=== PATIENT | female | born 1980 | race Caucasian/White ===

== ENCOUNTER 2023-04-20 11:11 | Day surgery (SDC) | payer OTHER, SELFPAY ==
--- NOTE | 2023-04-04 15:06 | PCM.HP.BLA ---
History and Physical Date of Admission: 04/20/23 HPI: The patient is a 42 year old female presenting for pre-operative visit. She is scheduled for laparoscopic bilateral salpingo-oohporectomy and hysteroscopy D&C, for aub and need for surgical m enopause, right ovarian cysts and estrogen receptor + breast ca. Procedure discussed along with risks, benefits and complications. Other alternatives discussed for management. Consent form signed? Yes. ? ? PAST MEDICAL HISTORY PAST MEDICAL HISTORY Diagnosis Date ? anxiety ? ? anxiety/ depression ages [age] ? Asthma ? ? childhood ? Breast cancer (HCC) 10/2020 ? Right Breast ? Breast cancer (HCC) 01/05/2021 ? 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 ? Ulcerative colitis (HCC) ? ? ? PAST SURGICAL HISTORY PAST SURGICAL HISTORY Procedure Laterality Date ? BX OF BREAST; INCISIONAL Right 11/12/2020 ? ? COLONOSCOPY ? ? ? MASTECTOMY HX Bilateral ? ? 01/05/2021 ? PAST SURGICAL HISTORY OF Bilateral 07/26/2021 ? GRAFTING OF AUTOLOGOUS FAT BY LIPO 50 CC OR LESS X 2 ? PAST SURGICAL HISTORY OF ? 10/2021 ? grafting for autologous fat ? TONSILLECTOMY PRIMARY/SECONDARY <AGE 14 ? ? ? Tonsillectomy in patient's 20s ? ? ? CURRENT MEDICATIONS Current Outpatient Medications Medication Sig Dispense Refill ? azelaic acid (FINACEA TOPICAL) Apply to affected area. ? ? ? Multivitamin capsule Take by mouth once daily. ? ? ? L.acid/L.casei/B.bif/B.bridget/FOS (PROBIOTIC BLEND ORAL) Take by mouth. ? ? ? No current facility-administered medications for this visit. ? ? ALLERGIES: Demerol [Meperidine (Pf)], Iodine, and Tape [Adhesive Tape-Silicones] ? PERSONAL HISTORY: SOCIAL HISTORY Social History ? Tobacco Use ? Smoking status: Never ? Smokeless tobacco: Never Vaping Use ? Vaping Use: Never used Substance Use Topics ? Alcohol use: Not Currently ? Drug use: No ? FAMILY HISTORY: FAMILY HISTORY FAMILY HISTORY Problem Relation Age of Onset ? Breast Cancer Mother 39 ? 39 ? Osteoporosis Mother ? ? Psychiatry Mother ? ? Depression ? Thyroid Mother ? ? Skin Cancer Mother ? ? SCC ? Hypertension Father ? ? Psychiatry Father ? ? Depression ? Skin Cancer Maternal Grandfather ? ? 10-20 BCC ? Stroke Paternal Grandfather 60 ? Fragile X Syndrome Son ? ? Ovarian cancer Paternal Aunt 65 ? 62 ? Breast Cancer Other ? ? dx'd 40's great great materal aunt ? ? REVIEW OF SYMPTOMS: GENERAL: denies fevers or chills ENDOCRINOLOGY: has not been on steroids Cardiology : denies palpitations or chest pain Respiratory: denies SOB or cough Hematology: denies history of prolonged bleeding or easy bruising or VTE Allergy: Denies history of personal or family history of allergy to anesthesia ? PHYSICAL EXAMINATION: ? VITALS: Blood pressure 94/66, weight 127 lb (57.6 kg), last menstrual period 12/31/2022. ? GENERAL: The patient is well nourished, well hydrated in no acute distress. , The patient is oriented to time, place, and person. NECK: Supple. No lynphadenopathy, normal thyroid, no thyromegaly. LUNGS: Clear to auscultation bilaterally. no wheezes, rhonchi or rales HEART: Regular rate and rhythm, Normal heart sounds, and No murmurs or gallops ? IMPRESSION: right ovarian cysts, estrogen receptor + breast ca, need for surgical menopause, abnormal uterine bleeding with thickened endometrium on pelvic US ? PLAN: The risks/benefits/alternatives and personal involved for the planned hysteroscopy D&C and laparoscopic BSO were reviewed with the patient. Her questions were answered to her satisfaction and she desires to proceed. Consent was signed. I reviewed with her postop instructions and expectations. ? ? I have reviewed and updated past medical and surgical history, medications and allergies Assessment & Plan Assessment/Plan (1) Chest wall recurrence of right breast cancer: (2) Abnormal uterine bleeding (AUB): (3) Right ovarian cyst:
[2023-04-13 13:16] LABS: Hematocrit 39.8 % (37-47); Hemoglobin 12.9 g/dL (12.0-15.0); Mean Corp Hgb Conc 32.4 g/dL (32-36); Mean Corpuscular Hgb 29.5 pg (27.0-32.0); Mean Corpuscular Volume 90.9 fL (81-99); Mean Platelet Vol. 11.4 fl (6.2-12.0); Platelet Count 238 K/mm3 (150-450); RBC Distribution Width CV 12.7 % (11.6-14.6); RBC Distribution Width SD 41.7 fl (35.1-43.9); Red Blood Count 4.38 M/mm3 (4.2-5.4); White Blood Count 5.5 K/mm3 (4.4-11.0)
--- NOTE | 2023-04-13 13:25 | EKG12_ITS ---
Test Reason : PRE-OP Blood Pressure : / mmHG Vent. Rate : 072 BPM Atrial Rate : 072 BPM P-R Int : 110 ms QRS Dur : 078 ms QT Int : 378 ms P-R-T Axes : 063 069 054 degrees QTc Int : 413 ms Sinus rhythm with sinus arrhythmia with short WI Otherwise normal ECG Confirmed by DARION PADGETT, MG ([id number]), news assignment editor KANDY OROZCO ([id number]) on 04/14/2023 10:07:12 AM Referred By: Debbie White Confirmed By:MG ORLANDO MD
[2023-04-20] VITALS (7 sets, daily range): BP systolic 95–114; BP diastolic 60–69; PULSE 58–86; RESP 16–18; TEMP 36.2–37.2; O2SAT 100; BMI 22.6
[2023-04-20 11:42] LABS: Internal QC Validated? YES +Cl - CLEAR BKGD; Pregnancy, Urine Negative Negative; Record Kit Lot#,Urine Preg 667200
[2023-04-20] MEDS: Acetaminophen 500 MG Tablet 1000 MG PO (11:53)
[2023-04-20] MEDS: Scopolamine 1mg/72hr Patch 1 PATCH TD (11:53)
[2023-04-20] MEDS: Ketorolac 30 MG/ML Syringe IV (11:53)
[2023-04-20] MEDS: Lactated Ringers 1,000 ML 15 ML IV ×2 (11:56→15:24)
--- NOTE | 2023-04-20 12:30 | OV_PTH ---
PATIENT: TRAM OCONNOR LOC: [facility] U#:[id number] AGE/SX: 43/F ROOM: RE04/20/[address]: Dr. Debbie White MD : 1980 BED: DIS: 04/20/2023 SPEC #: [id number] RECD: 04/20/23 15:23 STATUS: GUILLERMINA KVNG #: [id number] OVIDIO: 04/20/23 12:[address]: Debbie White DEPT: SURGICAL PATHOLOGY RECD BY: Glenna Mack ENTERED: 04/21/23 08:01 SP TYPE: OVARY OTHR DR: Dr. Cristobal Ibanez MD Tissues: A - Right ovary B - Left ovary C - Endometrial cavity Procedures: Surgery Specimen Level IV HEADER OPERATION: Laparoscopic bilateral salpingo-oophorectomy, hysteroscopy PRE-OP DIAGNOSIS: Chest wall recurrence of right breast cancer, abnormal uterine bleeding, right ovarian cyst TISSUE SUBMITTED: A - Right fallopian tube and ovary, B - Left fallopian tube and ovary, C - Endometrial curettings MICROSCOPIC DIAGNOSIS A. Right fallopian tube and ovary, salpingo-oophorectomy: Fallopian tube - no pathologic diagnosis. Ovary - No pathologic diagnosis. See comment. B. Left fallopian tube and ovary, salpingo-oophorectomy: Fallopian tube - no pathologic diagnosis. Ovary - No pathologic diagnosis. See comment. C. Endometrial curettings: Secretory endometrium. SJ:frances 04/24/2023 COMMENT A. A physiologic corpus luteum is noted. B. Physiologic follicular cysts and corpus luteum are noted. MICROSCOPIC DESCRIPTION Slides are reviewed. GROSS DESCRIPTION A - Received in fixative is one container labeled with the patient's name and designated right fallopian tube and ovary. The specimen consists of a fallopian tube and ovary. The fallopian tube measures 4.0 cm in length and 0.5 cm in diameter. The fimbrial end is identified. No tubo-ovarian adhesions are noted. The soft to cystic right ovary measures 3.0 x 2.5 x 1.2 cm. Sections reveal a few cysts. The largest cyst measures 0.5 cm in greatest dimension and a corpus luteum is also noted which measures 1.5 cm in greatest dimension. Bottom Bleacher sections are submitted in four cassettes as follows: 1 - fallopian tube, 2-4 - ovary. B - Received in fixative is one container labeled with the patient's name and designated left fallopian tube and ovary. The specimen consists of a fallopian tube and ovary. The fallopian tube measures 4.0 cm in length and 0.5 cm in diameter. The fimbrial end is identified. No tubo-ovarian adhesions are noted. The soft to cystic left ovary measures 3.0 x 2.0 x 1.5 cm. Sections reveal a cyst measuring 1.0 cm in greatest dimension and a corpus luteum measuring also 1.0 cm in greatest dimension. Bottom Bleacher sections are submitted in four cassettes as follows: 1 - fallopian tube, 2-4 - ovary. C - Received in fixative is one container labeled with the patient's name and designated endometrial curettings. The specimen consists of multiple fragments of zelaya hemorrhagic soft tissue that in aggregate measure 5.0 x 3.0 x 0.6 cm. The entire specimen is submitted in four cassettes. / SJ:frances 04/21/2023 TC:4 CPT: 71256 x3
[2023-04-20] MEDS: Bupivacaine Mpf 0.5% 30 ML VIAL (14:56)
--- NOTE | 2023-04-20 15:06 | OP.PCM_ITS ---
Problems Associated Problem List Diagnoses (1) Right ovarian cyst: (2) Abnormal uterine bleeding (AUB): (3) Chest wall recurrence of right breast cancer: Report of Operation Date of Procedure: 04/20/23 Pre-Operative Diagnosis: AUB, need for surgical menopause, recurrent estrogen receptor + breast cancer Post-Operative Diagnosis: same Surgery/Procedure Performed:: Laparoscopic BSO, hysteroscopy D&C Description of Surgical Findings:: normal cervix, uterus, tubes and ovaries, normal peritoneal cavity and appendix, lush thick endometrium Surgeon: Debbie White industrial commercial groundskeeper: Xavier James industrial commercial groundskeeper: Chuck Lange MS3 Type of Anesthesia: General Anesthesiologist: Janneth Morocho Special Medications: none Specimen's removed: bilateral tubes and ovaries, endometrial curettings Drains: none Estimated Blood Loss (mL): 10 Fluids Replaced: 1000 cc Description of Procedure: The patient was taken to the operating room where she was prepped and draped in the dorsolithotomy position. A weighted speculum was placed in the vagina and the anterior lip of the cervix was grasped with a tenaculum. The [employer] uterine manipulator was placed and the remainder of the instruments were removed from the vagina. Attention was turned to the abdomen. All port sites were infiltrated with 0.5% Marcaine before skin incisions were made. A 5 mm [intraumbilical] incision was made. The anterior abdominal wall was tented up with 2 towel clamps while a 5 mm blade less trocar and sleeve were [directly inserted]. Intraperitoneal placement was confirmed with the laparoscope. The pneumoperitoneum was created and the underlying abdominal contents were intact. The patient was placed in Trendelenburg. Right and left lower quadrant ports were placed under direct visualization lateral to the inferior epigastric vessels. The bowel was swept away and the above findings were noted. The LigaSure device was used to clamp seal and transect the infundibulopelvic ligaments. Both ureters were seen and were well below the pedicles. Care was taken to ensure that no area of varying remnants remained. The utero-ovarian ligaments were then clamped, sealed and transected with the LigaSure device. Any remaining broad ligament was clamped, sealed and transected with the LigaSure device. The same procedure was performed on the contralateral side and excellent hemostasis the pedicles was noted. The right tube was marked with the LigaSure device. The umbilical port was extended to 10 mm and a 10 mm Endo Catch bag was placed and the ovaries and tubes were placed in the bag. They were brought out through the umbilical incision. The fascia of the umbilical incision was closed with an 0 Vicryl tmolbd-na-vwrge suture. The skin incisions were all then closed with Monocryl suture and skin glue by the LIGHT CLEANER with me present in the operating suite. Sponge and needle counts for this portion of the case were correct. Attention was turned to the vaginal portion of the case. The Dayana uterine manipulator was removed. The cervix was serially dilated and the hysteroscope was placed in. It was a 5 mm hysteroscope. Lush endometrium was noted and both tubal ostia were identified. No focal abnormalities were noted. The hysteroscope was removed and a gentle sharp curettage was done of the entire uterine cavity and a large amount of endometrial curettings returned. The tenaculum was removed from the cervix and hemostasis at the tenaculum site was noted. Vaginal sweep was completed by me. The specimens were handed off and sent to pathology. Sponge and needle counts were correct. Patient was taken the recovery room in stable condition. Grafts/Implants Used: none Procedure Start Time: 14:28 Procedure Stop Time: 14:58 Complications none Admit VTE Documentation VTE Present on Admission: No VTE Mechan Device Prophylaxis: SCD's VTE Pharm Prophylaxis ordered?: No Reason prophylaxis not ordered:: Procedure Not Indicated
== END 2023-04-20 17:06 | disposition home or self-care (01) ==
LOC: SDC 11:16 → AC 11:17
PROVIDERS: PCP Family Medicine; Referring Provider Obstetrics & Gynecology; Visit Provider Obstetrics & Gynecology
PROC: (CPT 58558; principal; 2023-04-20 12:15)
PROC: 0UDB8ZZ Extraction of Endometrium, Via Natural or Artificial Opening Endoscopic (ICD-10-PCS; CPT 58558; 2023-04-20 12:15)
DX: N93.9 Abnormal uterine and vaginal bleeding, unspecified (principal); C76.1 Malignant neoplasm of thorax; N83.201 Unspecified ovarian cyst, right side; Z80.3 Family history of malignant neoplasm of breast
CPT/HCPCS: 58558; 00952; 36415; 81025; 85027; 88305; 93005; J7120; J2405

== ENCOUNTER → 2023-05-03 | Outpatient (CLI) | payer OTHER, SELFPAY ==
--- NOTE | 2023-05-03 12:40 | CT_ITS ---
STUDY: CT CHEST T ABDOMEN WITH CONTRAST REASON FOR EXAM: Female, 43 years old. IV CONT ONLY COMPARE TO [facility] 01/26/2023. History of bilateral mastectomy for carcinoma. Bilateral salpingonephrectomy. RADIATION DOSAGE (If Supplied By Facility): CTDIvol = ( 7.39 ) mGy, DLP = ( 394.12 ) mGycm TECHNIQUE: Transaxial imaging was performed following intravenous administration of IV 100mL Isovue-370. Individualized dose optimization techniques were used for this CT. COMPARISON: Comparison is made with prior examination dated January 26, 2023. FINDINGS: CHEST The patient is status post bilateral mastectomy and bilateral breast prostheses. The lungs are normal. There is no demonstrated pleural abnormality. Normal heart and pericardium. Normal mediastinum. Normal hilar regions. Normal unenhanced pulmonary arteries. Normal aorta arch and descending thoracic aorta. Normal osseous structures. There is no demonstrated abnormality of the visualized upper abdomen. ABDOMEN The visualized lung bases are unremarkable. The visualized portions of the heart are within normal limits. Normal liver. Normal gallbladder and extrahepatic biliary system. Normal spleen. Normal pancreas. Normal bilateral adrenal glands. Normal right kidney. Normal left kidney. Normal visualized stomach. Normal small intestine. Normal colon. The appendix is visualized and appears normal. Normal abdominal aorta. Normal inferior vena cava. Normal retroperitoneum. Minimal amount of free fluid is seen in the cul-de-sac. Normal abdominal wall. Normal osseous structures. CT/CT Chest AND Abd W/ Contrast IMPRESSION: Stable examination. Minimal amount of fluid is seen in the cul-de-sac. Electronically Signed: Heriberto Romero MD at 15:31 EST ,
== END | disposition home or self-care (01) ==
LOC: CT 12:39
PROVIDERS: PCP Family Medicine; Referring Provider Internal Medicine Hematology & Oncology; Visit Provider Internal Medicine Hematology & Oncology
DX: C50.911 Malignant neoplasm of unspecified site of right female breast (principal); R91.8 Other nonspecific abnormal finding of lung field; Z17.0 Estrogen receptor positive status [ER+]
CPT/HCPCS: 71260; 74160; Q9967

== ENCOUNTER → 2023-07-06 | Outpatient (CLI) | payer OTHER, SELFPAY ==
--- NOTE | 2023-07-06 | IMM_PTH ---
PATHOLOGY RESULTS PATIENT: TRAM OCONNOR LOC: [facility] U#:[id number] AGE/SX: 43/F ROOM: RE07/06/[address]: Dr. Jazmine Mead MD : 1980 BED: DIS: 07/06/2023 SPEC #: [id number] RECD: 07/10/23 13:13 STATUS: GUILLERMINA REQ #: [id number] OVIDIO: 07/06/23 00:[address]: Jazmine Mead DEPT: IMMUNOHISTOCHEMISTRY RECD BY: Belem Weber ENTERED: 07/10/23 13:14 SP TYPE: IMMUNO OTHR DR: Dr. Cristobal Ibanez MD Tissues: Left breast, NOS Procedures: CK7 (add) CK8 (add) LISSA (add) KI-67 (add) MAMM (add) P53 (add) Vimentin (add) Pankeratin (initial) GATA3 (add) CD68 (ADD) PHYSICIAN & INSTITUTION [address] [address] SPECIMEN INFORMATION: Tissue Source: Left breast, biopsy Clinical Info: Left breast nodule Specimen Number: [id number] CPT code: 75173, 80655 x9 METHODOLOGY: Deparaffinized sections of prefer/formalin-fixed tissue or PAP/DQ stained slides are incubated with monoclonal/polyclonal antibodies/oligonucleotide probes. Localization is made via biotin free immunoperoxidase method. Appropriate controls are performed and reacted as expected. Results on target cell population are indicated in the following table: RESULTS: ANTIBODY / CLONE RESULT Mammaglobin (31A5) negative GATA3 (L50-823) negative AE1-3 (AE1/AE3/PCK26) negative CK7 (OV-TL12/30) negative CK8 (52ddeqY63) negative Vimentin (V9) positive CD68 (KP-1) positive LISSA (E29) negative P53 (DO-7) negative, null pattern Ki-67 (30-9) positive, low These tests were developed and their performance characteristics determined by [facility]. They may not have been cleared or approved by the U.S. Food and Drug Administration. The FDA has determined that such clearance or approval is not necessary. The above immunohistochemical/dualISH markers are ordered and reviewed by the Pathologist. INTERPRETATION: Left breast, biopsy: No evidence of malignancy. AM:frances 07/11/2023
--- NOTE | 2023-07-06 13:30 | BRBX_PTH ---
PATHOLOGY RESULTS PATIENT: TRAM OCONNOR LOC: [facility] U#:[id number] AGE/SX: 43/F ROOM: RE07/06/[address]: Dr. Jazmine Mead MD : 1980 BED: DIS: 07/06/2023 SPEC #: [id number] RECD: 07/06/23 14:18 STATUS: GUILLERMINA REAnant #: [id number] OVIDIO: 07/06/23 13:[address]: Jazmine Mead DEPT: SURGICAL PATHOLOGY RECD BY: Aggie Araujo ENTERED: 07/07/23 08:10 SP TYPE: BREAST BX OTHR DR: Dr. Cristobal Ibanez MD Tissues: Left breast, NOS Procedures: Surgery Specimen Level IV HEADER OPERATION: Biopsy of left breast PRE-OP DIAGNOSIS: Left breast nodule TISSUE SUBMITTED: Left medial breast/sternum MICROSCOPIC DIAGNOSIS Left breast nodule, core biopsy: Fibrosis, fat necrosis, collagenosis and mild chronic inflammation. No evidence of malignancy. See comment. AM:frances 07/11/2023 COMMENT Immunohistochemistry ([id number]) supports the above diagnosis. This case discussed with Dr. Mead on 07/10/2023. Case has been reviewed in consultation with Dr. Hays who concurs with the above diagnosis. IDC:SJ MICROSCOPIC DESCRIPTION Slides are reviewed. GROSS DESCRIPTION Received in fixative is one container labeled with the patient's name and designated left breast. The specimen consists of multiple elongated fragments of zelaya-yellow fibroadipose tissue that in aggregate measure 1.5 x 0.5 x 0.1 cm. The entire specimen is submitted in one cassette. / CATHLEEN:frances 07/07/23 TC:2 CPT: 53520
== END | disposition home or self-care (01) ==
LOC: LABSPEC 14:22
PROVIDERS: PCP Family Medicine; Referring Provider Surgery; Visit Provider Surgery
DX: N63.20 Unspecified lump in the left breast, unspecified quadrant (principal)
CPT/HCPCS: 88305; 88341; 88342

== ENCOUNTER 2023-09-20 16:50 | Emergency (ER) | payer OTHER, SELFPAY ==
[2023-09-20 16:51] VITALS: BP 118/82; PULSE 71; RESP 16; TEMP 36.9; O2SAT 100; BMI 23.3
--- NOTE | 2023-09-20 17:14 | EKG12_ITS ---
Test Reason : GENERAL Blood Pressure : / mmHG Vent. Rate : 069 BPM Atrial Rate : 069 BPM P-R Int : 124 ms QRS Dur : 080 ms QT Int : 426 ms P-R-T Axes : 059 063 061 degrees QTc Int : 456 ms Normal sinus rhythm Normal ECG Confirmed by DARION PDAGETT, MG ([id number]), food editor KANDY OROZCO ([id number]) on 09/21/2023 9:15:49 AM Referred By: Confirmed By:MG ORLANDO MD
--- NOTE | 2023-09-20 17:15 | EDS_ITS ---
HPI History of Present Illness Chief Complaint: Chest Other Detail of Chief Complaint: Right-sided chest pain yesterday. [place] like a cramp. Informant: patient Onset/Context/Timing Onset: Today and Yesterday Activity at onset: gradual Timing: Continuous Quality: Positive for - (Right-sided chest cramping.) Location: Right Chest Current Severity: Mild Maximum Severity: Mild Worsened By: Breathing Relieved By: Nothing Associated Symptoms: Negative for Nausea, Vomiting, Diaphoresis, Dyspnea, Cough, Fever, Lightheadedness, Acid Reflux or Palpitations Narrative Narrative: 43-year-old female history of breast cancer in 2020 with recurrence. She is currently in a clinical trial at [facility]. Prior history of bilateral mastectomies. Send yesterday she was doing her normal activities. And developed a right-sided lateral chest cramping. And then today it is more in her posterior right chest. She said it more uncomfortable she takes a deep breath but she did not feel short of breath. No history of DVT or PE. No leg pain or swelling. No hemoptysis. No recent travel surgery or hospitalization. No left-sided chest pain and no cardiac history. Prior Similar Symptoms: Yes Recent Illness/Hospitalization: No CVD Risk Factors: Negative for Hypertension, Diabetes or Hypercholesterolemia PE Risk Factors: Positive for Cancer; Negative for Recent Travel/Surgery, Recent Immobilization, Prior DVT or PE or OCP + Smoking + >/=35 TAD Risk Factors: Negative for Marfan's Syndrome [facility] Medical History Alcohol use Anxiety Asthma Cancer Encounter for education History of edema Lung nodule, multiple Non-smoker Recurrent cancer of right breast Restless legs Syncope Ulcerative colitis Wears contact lenses Wears glasses Home Medications azelaic acid 15 % topical foam (Finacea) 50 g topical .QOD 07/12/16 [History Last Taken 07/11/16] lactobacillus comb no.10 20 billion cell capsule (Probiotic) 1 ea PO DAILY 07/12/16 [History Last Taken 07/11/16] multivitamin 1 tab PO DAILY 03/06/23 [History Last Taken Unknown] dexamethasone 4 mg tablet 8 mg (2 x 4 mg) PO .COMPLEX #48 tabs 07/26/23 [Rx Last Taken Unknown] lidocaine-prilocaine 2.5 %-2.5 % topical cream 1 applic topical ONCE PRN Port access 30 days #30 grams 07/26/23 [Rx Last Taken Unknown] ondansetron 8 mg disintegrating tablet 8 mg PO Q8H PRN nausea and vomiting #30 tabs 07/26/23 [Rx Last Taken Unknown] prochlorperazine maleate 10 mg tablet 10 mg PO Q6H PRN nausea and vomiting #30 tabs 07/26/23 [Rx Last Taken Unknown] Allergy/AdvReac Type Severity Reaction Status Date / Time iodine Allergy Hives Verified 08/01/23 10:56 meperidine [From Demerol] Allergy Rash Verified 08/01/23 10:56 Family History Mother Breast cancer Thyroid disorder Father Hypertension Aunt Cervical cancer Maternal Surgical History History of bilateral salpingo-oophorectomy (BSO) History of dilatation and curettage History of lumpectomy History of mastectomy History of tonsillectomy Hx of tissue graft Social History Smoking Status: Never smoker alcohol intake: current alcohol intake frequency: holidays/special occasions only substance use type: does not use ROS ROS ED ROS Narrative Right-sided chest pain. No dyspnea. No fever or cough. No shortness of breath. Constitutional Constitutional ED: Denies chills or fever(s) Eyes Eyes: Reports none ENT ENT ED: Denies ear pain or rhinorrhea Cardiovascular Cardiovascular: Reports as per HPI and chest pain; Denies palpitations or racing heartbeat Respiratory/Chest Respiratory/Chest: Denies dyspnea Gastrointestinal Gastrointestinal: Denies abdominal pain Genitourinary Genitourinary ED: Denies dysuria or hematuria Musculoskeletal Musculoskeletal: Denies arthralgias Integumentary Denies abscess or Abrasions Neurologic Neurologic: Denies headache(s) Psychiatric Psychiatric: Denies anxiety Endocrine Endocrinology: Denies cold intolerance Hematologic/Lymphatic Hematologic/Lymphatic: Denies easy bleeding, easy bruising or lymphadenopathy Allergic/Immunologic Allergic/Immunologic ED: Denies mouth swelling, tongue swelling or urticaria EXAM Physical Exam Narrative Exam Narrative: Well-appearing 43-year-old female. Vital signs stable afebrile. Pulse ox 100% on room air no hypoxia. HEENT exam unremarkable. Neck nontender. Lungs clear to auscultation bilaterally. Equal symmetrical. Heart regular rate and rhythm rate about 70 no murmur. Chest wall and ribs and back are nontender. Abdomen is soft and nontender. Moving all 4 extremities. Calves are nontender without edema or cords. Neurologically she is awake and alert with no focal motor deficits. Const Vital Signs: 09/20/23 16:51 09/20/23 17:26 09/20/23 17:51 Temperature 98.5 F Temperature Source Temporal Pulse Rate 71 62 Respiratory Rate 16 12 Blood Pressure 118/82 H 110/72 Blood Pressure Mean 94 84 Pulse Ox 100 100 100 Oxygen Delivery Method Room Air Room Air Room Air 09/20/23 18:00 Temperature Temperature Source Pulse Rate 62 Respiratory Rate 12 Blood Pressure 110/72 Blood Pressure Mean 84 Pulse Ox 100 Oxygen Delivery Method Positive well nourished and well developed; Negative for obese, cachectic, contractures or unkempt General Appearance ED: well developed and NAD; Negative for unkempt, cachectic, contractures or pallor Nutritional Appearance: Negative for cachectic or obese HEENT Reports moist mucous membranes; Denies dry mucous membranes normocephalic and atraumatic; Negative for trauma or tenderness Mouth ED: No dry mucous membranes Mouth: No dry mucous membranes Eyes PERRL and EOMs intact bilaterally General Eye ED: Negative for pale conjunctiva or scleral icterus Neck no lymphadenopathy, supple and no JVD General: Negative for tenderness Chest Wall inspection of chest normal and palpation of chest normal Chest Narrative: Nontender. Chest: Negative for tenderness Resp normal respiratory effort and clear to auscultation bilaterally Effort and Inspection: Negative for respiratory distress Auscultation: Negative for rales, rhonchi or wheezes Cardio regular rate, regular rhythm, S1 normal heart sound, S2 normal heart sound and no murmurs Rate: Negative for bradycardia or tachycardic Rhythm: Negative for abnormal rhythm Peripheral Pulses: pulses 2+ throughout GI normal to inspection, nondistended, normoactive bowel sounds, soft to palpation, non-tender, non-distended and no masses Auscultation: Negative for hyperactive bowel sounds Palpation: Negative for splenomegaly or mass Back/Spine no CVA tenderness and no thoracic nor lumbar tenderness General Back: Negative for CVA tenderness Cervical Spine: Negative for cervical spine tenderness Extremity normal to inspection General Extremety ED: Negative for edema, pulses abnormal or tenderness General Extremity: Negative for edema or pulses abnormal Neuro oriented x3 and CN's II-XII intact bilaterally Sensorium / Orientation: awake, alert, oriented to person, oriented to place and oriented to time; Negative for confused, lethargic or stuporous Motor Exam: strength 5/5 throughout Psych mental status grossly normal Appearance: Negative for unkempt Attitude: No agitated Mood & Affect: Negative for depressed, anxious or tearful Skin no rashes or lesions noted and no wounds General Skin Exam: Negative for jaundice or pallor Rashes: No rashes noted Trauma: Negative for abrasion, laceration or puncture Heart Score History: Slightly/Non-Suspicious ECG: Normal Age: </= 45 years Risk Factors: No Risk Factors Troponin: </= Normal Limit Score: 0 MDM MDM MDM Narrative Medical decision making narrative: 43-year-old female with right-sided chest pain is not reproducible. She has no cardiac history and it did not sound like cardiac chest pain. She is never had a DVT or PE but she does have a prior history of breast cancer. She will undergo cardiac workup with a D-dimer. She is also had a prior history of pleurisy which she states was somewhat like this but may not be exactly the same pain. Repeat exam patient doing well at 6 6 PM. We discussed discussed her test results. I think this is secondary to pleurisy. Does not appear to be cardiac. Her D-dimer is negative I do not think is a PE. She will be discharged home. Ibuprofen for pain. Outpatient follow-up as needed. History & Record Review Discussion w/independent historian: Patient Additional record(s) reviewed:: Prior inpatient record, Prior outpatient record, Prior ED visit and Prior labs Lab Data Attestation: I reviewed the patient's lab results. Lab results narrative: CBC shows a white count of 1.6. H&H 13 and 39. Platelets 137. Electrolytes show a gap of 5. Normal BUN of 11 creatinine 1.24. Glucose 93 and troponin 6. D-dimer is normal at 0.31. Labs: Laboratory Results - last 24 hr 09/20/23 17:20 WBC 1.6 L RBC 4.36 Hgb 13.6 Hct 39.2 MCV 89.9 MCH 31.2 MCHC 34.7 RDW Std Deviation 37.4 RDW Coeff of Jacobo 12.7 Plt Count 137 L MPV 9.8 Immature Gran % (Auto) 0.000 Neut % (Auto) 56.2 Lymph % (Auto) 32.9 Hardy % (Auto) 6.1 Eos % (Auto) 2.4 Baso % (Auto) 2.4 H Absolute Neuts (auto) 0.9 L Absolute Lymphs (auto) 0.54 L Nucleated RBC % 0 D-Dimer Quant (PE/DVT) 0.31 Sodium 139 Potassium 3.9 Chloride 105 Carbon Dioxide 29.0 Anion Gap 5 BUN 11 Creatinine 1.24 H Estim Creat Clear Calc 47.22 Est GFR (MDRD) Af Amer 61 Est GFR (MDRD) Non-Af 51 L BUN/Creatinine Ratio 8.9 L Glucose 93 Calcium 9.7 Troponin I High Sens 6 Radiography Chest X-Ray - ED: 1 View, Read by ED Physician, Heart, Lungs, Mediastinum, Bony Structures, No Acute Disease and Chronic Changes Diagnostic Testing: Chest x-ray, portable, single view interpreted by myself shows no acute abnormality. Normal cardiac silhouette. Normal mediastinum. Normal aortic knob. Normal lung sesay. Rhythm Strip Rhythm Strip: Sinus Rhythm Rate: 69 Ectopy: None EKG Initial EKG: Attestation: I personally reviewed and interpreted this EKG as follows: Interpretation: Sinus Rhythm Comments: Normal sinus rhythm rate of 69 no acute signs of ND or ischemia. Discharge Plan Triage Chief Complaint: Chest Other ED Provider: Jatin Tabor Dx/Rx/DC Orders Clinical Impression: History of breast cancer, Right-sided chest pain, Pleurisy Instructions: ED Pleurisy Prescriptions: No Action multivitamin Tablet 1 tab PO DAILY prochlorperazine maleate 10 mg tablet 10 mg PO Q6H PRN (Reason: nausea and vomiting) Qty: 30 2RF ondansetron 8 mg tablet,disintegrating 8 mg PO Q8H PRN (Reason: nausea and vomiting) Qty: 30 2RF lidocaine-prilocaine 2.5-2.5 % cream 1 applic topical ONCE PRN (Reason: Port access) 30 Days Qty: 30 2RF dexamethasone 4 mg tablet 8 mg PO .COMPLEX Qty: 48 0RF Rx Instructions: 8 mg orally twice daily ONLY the day before, day of, and day after chemotherapy Probiotic 1 EACH capsule 1 ea PO DAILY Finacea 50 GM foam 50 g topical .QOD Primary Care Provider: Cristobal Ibanez Referrals: Cristobal Ibanez MD [Primary Care Provider] - 1 Week if not improving Activity Restrictions/Additional Instructions: Your labs were unremarkable. I believe this to be pleurisy. Motrin and/or Tylenol for pain. Follow-up with your primary care physician if not improving. Disposition Disposition: Home, Self Care
--- NOTE | 2023-09-20 17:23 | RAD_ITS ---
INDICATION: chest pain EXAMINATION/TECHNIQUE: X-RAY - XR Chest 1 View COMPARISON: FINDINGS: LINES/DEVICES: None. LUNGS: No consolidation, edema or effusion. No pneumothorax. MEDIASTINUM AND CARDIOVASCULAR STRUCTURES: Cardiac silhouette not enlarged. Central airways and mediastinal contour are unremarkable. BONES AND SOFT TISSUES: Surgical clips are noted over the right axilla. RAD/Chest 1 View (Portable) IMPRESSION: No radiographic evidence of acute cardiopulmonary disease. Electronically Signed: Vincent Young DO at 20:16 EDT ,
[2023-09-20 17:26] VITALS: O2SAT 100
[2023-09-20 17:38] LABS: Absolute Lymphocyte Count 0.54 X10^3/uL (0.83-4.51); Absolute Neutrophil Count 0.9 X10^3/uL (2.0-7.7); Basophil# 0.04 X10^3/uL; Basophil% 2.4 % (0-1); Eosinophil# 0.04 X10^3/uL; Eosinophils% 2.4 % (0-5); Hematocrit 39.2 % (37-47); Hemoglobin 13.6 g/dL (12.0-15.0); Lymphocyte # 0.54 X10^3/ul (0.83-4.51); Lymphocyte % 32.9 % (19-41); Mean Corp Hgb Conc 34.7 g/dL (32-36); Mean Corpuscular Hgb 31.2 pg (27.0-32.0); Mean Corpuscular Volume 89.9 fL (81-99); Mean Platelet Vol. 9.8 fl (6.2-12.0); Monocyte% 6.1 % (0-10); NRBC Flagged by Analyzer 0 % (0-5); Neutrophil # 0.92 X10^3/uL (2.7-7.7); Neutrophil % 56.2 % (47-70); POSITIVE DIFFERENTIAL YES; POSITIVE MORPHOLOGY YES; Platelet Count 137 K/mm3 (150-450); RBC Distribution Width CV 12.7 % (11.6-14.6); RBC Distribution Width SD 37.4 fl (35.1-43.9); Red Blood Count 4.36 M/mm3 (4.2-5.4); White Blood Count 1.6 K/mm3 (4.4-11.0)
[2023-09-20 17:43] LABS: Differential Indicated SCAN CRITERIA MET
[2023-09-20 17:45] LABS: D-Dimer Quantitative (DVT/PE) 0.31 FEU/ug/m (0.27-0.49)
[2023-09-20 17:51] VITALS: BP 110/72; PULSE 62; RESP 12; O2SAT 100
[2023-09-20 17:55] LABS: Anion Gap 5 (5-15); BUN 11 mg/dL (7-18); BUN/Creat Ratio 8.9 RATIO (10-20); Calcium,Total 9.7 mg/dL (8.5-10.1); Chloride 105 mmol/L (98-107); Creatinine, Serum 1.24 mg/dL (0.55-1.02); EST Glomerular Filtration Rate 51 mL/min (>60); Est Glom Filt Rate - Afr Amer 61 mL/min (>60); Estimated Creatinine Clearance 47.22 ml/min; Glucose 93 mg/dL (74-106); Potassium 3.9 mmol/L (3.5-5.1); Sodium Level 139 mmol/L (136-145); Troponin-I HS 6 pg/mL (3.0-54.0)
[2023-09-20 18:00] VITALS: BP 110/72; PULSE 62; RESP 12; O2SAT 100
[2023-09-20 18:12] LABS: Differential Comment SCANNED
[2023-09-20 18:19] VITALS: BP 110/72; PULSE 88; RESP 16; TEMP 36.8; O2SAT 99
[2023-09-21 14:32] LABS: Pathologist Review Reviewed
== END 2023-09-20 18:19 | disposition home or self-care (01) ==
PROVIDERS: Emergency Provider Emergency Medicine; PCP Family Medicine; Visit Provider Emergency Medicine
DX: R07.9 Chest pain, unspecified (principal); R09.1 Pleurisy
CPT/HCPCS: 71045; 80048; 84484; 85025; 85379; 93005; 99284; A4216

== ENCOUNTER 2023-11-15 09:30 | Outpatient (RCR) | payer OTHER, SELFPAY ==
--- NOTE | 2023-10-31 07:11 | HP.OTREVAL ---
Re-Evaluation Intro: Dr. David Gutierrez, DO, It has been my pleasure to treat TRAM OCONNOR over the last 2 visits for right breast cancer. Please see the progress note below for an update on the occupational therapy plan of care! Subjective Subjective: In late August she began having some right reconstructed breast tightness and firmness and also some skin erythema. pt arrives states she started to increase cording with tightness at her right breast. pt states she was placed on antibiotic and this has helped. pt states she also had a incident when she went to reach across herself to a dresser- she felt a pull/tear at her right side- pt has concerns of some swelling- pt would like to know what more she can do with the cording and tightness at her breast/pec region. Pt has silicone implant this right breast is asymmetrical sitting higher than her left. right breast lumpectomy and sentinel lymph node biopsy (01/30/2023). From 04/03/2023 ? 05/12/2023 she received adjuvant radiation therapy to the right chest wall and regional lymph nodes. August 2023 felt coding of right UE ( pt has full ROM of shoulder flexion) Objective Objective/Function: pt demo with cording of right UE with right shoulder flexion pt demo limited right shoulder ER pt demo with limited right shoulder abduction- sitting and lying down pts right breast elevated more than left - pt states she feels a firmness of her right breast she did not have before- Pt would benefit from OT services 2-4 visits to ed. pt on ROM stretch/ as well as ed. pts spouse on manual stretch megan. to assist pt in a decrease in cording/webbing. pt agree to POC. Plan Plan Plan: pt to bring spouse next visit to learn manual megan. to assist in decreasing cording/ webbing pt will contact her plastic surgeon Goals Goals Goal: Patient will demonstrate adequate knowledge of self-massage by the end of the second week.: Yes Goal Progress: Progressing Goal: Patient will demonstrate adequate knowledge of skin care and precautions by the end of the first week.: Yes Goal Progress: Progressing Goal: Patient will demonstrate adequate knowledge of therapeutic exercises by discharge.: Yes Goal Progress: adding in webbing stretch Goal: Patient will select an appropriate compression garment and demonstrate adequate knowledge of correct donning technique, care and wearing schedule by discharge.: Yes Goal Progress: Goal Met Goal: Patient will voice understanding of need to replace compression garment every four to six months by discharge.: Yes Goal Progress: Goal Met Goal: Patient will demonstrate ROM WFL by discharge.: Yes Patient Goals: Regain Mobility, Use Hand/Wrist/Arm Normally Again, Increase ROM and Learn how to Manage Lymphedema Anticipated Interventions Anticipated Interventions Anticipated Interventions: Education re Diagnosis, Education re Life-long lymphedema Management, Education re Skin Care and Precautions, Education re Self Massage Techniques, Caregiver Training and Home Program Re-Evaluation Ending Re-evaluation ending: Please do not hesitate to contact me at [phone] by phone or if you have questions or concerns regarding this new plan of care! Sincerely, Theresa Meneses OTR/L, CHT
== END 2023-11-15 19:00 | disposition home or self-care (01) ==
LOC: OT 09:30
PROVIDERS: PCP Family Medicine; Visit Provider Student in an Organized Health Care Education/Training Program
DX: C50.911 Malignant neoplasm of unspecified site of right female breast (principal)
CPT/HCPCS: 97140; 97166; 97530

== ENCOUNTER → 2025-05-01 | Outpatient (CLI) | payer OTHER, SELFPAY ==
--- NOTE | 2025-05-01 08:34 | NM_ITS ---
PROCEDURE: BONE SCAN WHOLE BODY 05/01/2025 REASON FOR EXAM: RECURRING BREAST CA W/ NEW RIB PAIN/EVAL FOR METS TECHNIQUE: Procedure Code: NMBO Modality: NM Procedure: BONE SCAN WHOLE BODY Delayed whole-body bone scan with anterior and posterior views. Additional imaging of bilateral ribs is performed. RADIOPHARMACEUTICAL: 26.1 mCi Technetium-99m MDP IV COMPARISON: Whole-body bone scan of 01/20/2023. NM/Bone Scan Whole Body IMPRESSION: Compared with the prior whole-body bone scan of 01/20/2023, newly seen are 2 fo ci of adjacent increased uptake at mid right lateral ribs. Given the proximity, these may represent healing fractures. Also, no additional foci are seen to suggest the presence of osseous metastatic disease. Consider plain film comparison, if clinically desired. Mild degenerative changes of the spine are seen. Reading Location: [place] [id number]
== END | disposition home or self-care (01) ==
LOC: NM 08:33
PROVIDERS: PCP Family Medicine; Referring Provider Hospitalist; Visit Provider Hospitalist
DX: C50.919 Malignant neoplasm of unspecified site of unspecified female breast (principal)
CPT/HCPCS: 78306; A9503

== ENCOUNTER → 2025-05-07 | Outpatient (CLI) | payer OTHER, SELFPAY ==
--- NOTE | 2025-05-07 15:32 | RAD_ITS ---
PROCEDURE: RIBS UNI MIN 3V W/PA CHEST 05/07/2025 REASON FOR EXAM: H/O BREAST CA/ F/U ON RIB FX AND UPTAKE ON BONE SCAN TECHNIQUE: Procedure Code: RADRIB Modality: DX Procedure: RIBS UNI MIN 3V W/PA CHEST COMPARISON: Chest x-ray dated 09/20/2023 FINDINGS: Lungs are expanded and clear without evidence of lung contusion, pneumothorax, atelectasis, consolidation, effusion or pneumonic infiltrate. Heart size and configuration are within normal limits. Pulmonary vasculature and hilar structures are unremarkable. Trachea is midline. Surgical clips are projected over the right lateral chest wall axillary region. There are minimally displaced fractures involving the posterior lateral aspect of the right 5th and 6th ribs. This correlates to the area of increased uptake on the recent whole body scan RAD/Ribs Uni Min 3V w/PA Chest IMPRESSION: No acute cardiopulmonary process is identified radiographically. The increase in uptake of the radiotracer on the prior bone scan dated 05/01/20 25 appears to correspond to 2 minimally displaced right rib fractures. The posterior lateral aspect of the right 5th and 6th rib s are fracture. Reading Location: [id number]
== END | disposition home or self-care (01) ==
LOC: RAD 15:18
PROVIDERS: PCP Family Medicine; Referring Provider Hospitalist; Visit Provider Hospitalist
DX: C50.911 Malignant neoplasm of unspecified site of right female breast (principal)
CPT/HCPCS: 71101